=== PATIENT | female | born 1980 | race Native Hawaiian/Other Pacific Islander ===

== ENCOUNTER 2017-12-29 18:38 | Emergency (ER) | payer BC ==
[~2017-12-29] VITALS: Ht 165.1 cm; Wt 88.5 kg
[2017-12-29] MEDS ORDERED: HYZAAR1 TA1 PO (18:55)
[2017-12-29] MEDS ORDERED: CYCL10TA35 PO (18:56)
== END 2017-12-29 20:30 | disposition home or self-care (01) ==
LOC: ED 18:38
DX: S16.1XXA Strain of muscle, fascia and tendon at neck level, initial encounter (principal); W19.XXXA Unspecified fall, initial encounter
CPT/HCPCS: 96372; 99283; J1885

== ENCOUNTER 2018-09-16 18:47 | Emergency (ER) | payer BC ==
[~2018-09-16] VITALS: Ht 165.1 cm; Wt 85.7 kg
[~2018-09-16 18:47] MED LIST: CYCL10TA35 PO; HYZAAR1 TA1 PO
[2018-09-16 21:32] VITALS: BP 136/84; TEMP 97.9
== END 2018-09-16 21:46 | disposition home or self-care (01) ==
LOC: ED 18:47
DX: R31.9 Hematuria, unspecified (principal); R10.9 Unspecified abdominal pain
CPT/HCPCS: 81000; 96372; 99283; J1885; J2175; J2550